=== PATIENT | female | born 1960 | race Caucasian/White ===

== ENCOUNTER → 2016-10-09 | Outpatient (CLI) | payer BC ==
--- NOTE | 2016-10-09 15:48 | REP ---
Soft-tissue ultrasound left groin. History: Tender groin lump question of lymph nodes. The patient states the symptoms come and go. Findings: Scanning through the left groin shows several normal lymph nodes. No soft tissue mass, adenopathy or cyst is seen. No evidence of hernia. The lymph nodes retain their hilar central fatty replaced architecture. Lymph nodes are seen measuring 1.3 x 0.6 x 0.2 cm, 2.5 x 0.7 x 0.5 cm, 0.9 x 0.4 x 0.3 cm, and 1.2 x 0.5 x 0.4 cm. Impression: Normal appearing lymph nodes. No other abnormality.
== END ==
LOC: M WHC 08:41
PROVIDERS: ATTEND Nurse Practitioner Family
DX: R19.09 Other intra-abdominal and pelvic swelling, mass and lump (principal)

== ENCOUNTER → 2017-02-04 | Outpatient (REF) | payer BC ==
[2017-02-04 14:42] LABS: TOTAL PROTEIN 7.2 GM/DL (6.4-8.2)
[2017-02-04 14:45] LABS: VITAMIN B12 LEVEL 662 PG/ML
[2017-02-04 14:46] LABS: FOLATE > 24.0 NG/ML
[2017-02-07 11:16] LABS: ALBUMIN 4.49 GM/DL (3.29-5.55); ALBUMIN % 62.4 % (55.8-66.1); GAMMA GLOBULIN % 10.9 % (11.1-18.8)
== END ==
LOC: M LABNEURO 13:56
PROVIDERS: ATTEND Psychiatry & Neurology Neurology
DX: N39.0 Urinary tract infection, site not specified (principal); E11.9 Type 2 diabetes mellitus without complications; G62.9 Polyneuropathy, unspecified

== ENCOUNTER → 2018-03-31 | Outpatient (REF) ==
[2018-03-31 14:30] LABS: HEPATITIS B SURFACE ANTIGEN NEGATIVE (NEGATIVE)
[2018-03-31 14:58] LABS: HEPATITIS C VIRUS ABY INDEX 0.3 INDEX (<0.8)
== END ==
LOC: M LAB REF 13:55
DX: N17.9 Acute kidney failure, unspecified (principal)

== ENCOUNTER → 2018-07-03 | Outpatient (REF) | payer BC ==
[2018-07-08 14:49] LABS: HPV HYBRID CAPTURE II Negative (Negative)
== END ==
LOC: M SFHCWAGY 08:05
DX: Z12.4 Encounter for screening for malignant neoplasm of cervix (principal)
CPT/HCPCS: G0123

== ENCOUNTER → 2018-07-03 | Outpatient (CLI) | payer BC | LOC: M WHC 08:10 | DX: Z12.31 Encounter for screening mammogram for malignant neoplasm of breast (principal); Z78.0 Asymptomatic menopausal state | CPT/HCPCS: 77067 ==

== ENCOUNTER → 2019-07-06 | Outpatient (CLI) | payer BC ==
--- NOTE | 2019-07-06 10:59 | REP ---
BILATERAL SCREENING DIGITAL MAMMOGRAM WITH 3D TOMOSYNTHESIS: There are no palpable abnormalities or other breast complaints. The the patient states she had a clinical breast examination July,. The the patient states she performs self-breast examinations 12 times per year. The Tyrer-Cuzick Score is: 8.9% . Comparison is 06/28/2014. There are scattered areas of fibroglandular density. There is no dominant mass, micro calcific cluster or architectural distortion that would indicate malignancy. There are no additional findings on 3D tomosynthesiss. There is no change from the prior study. Impression: BIRADS/ACR category 1 mammogram. Negative. Recommendation: Routine annual screening mammography. This mammogram was interpreted with the aid of a FDA approved computer-aided detection system. A. Negative mammogram reports should not delay biopsy if a dominant or clinically suspicious mass is present. B. Not all breast cancers are identified by mammography or tomosynthesis. C. Adenosis and dense breasts may obscure an underlying neoplasm. Patient letter M1. Electronically Signed by Deep Oates MD 07/06/2019 10:50 A
== END ==
LOC: M WHC 08:07
PROVIDERS: ATTEND Nurse Practitioner Family
DX: Z12.31 Encounter for screening mammogram for malignant neoplasm of breast (principal)

== ENCOUNTER → 2019-07-06 | Outpatient (REF) | payer BC | LOC: M SFHCWAGY 08:29 | PROVIDERS: ATTEND Nurse Practitioner Family | DX: Z12.4 Encounter for screening for malignant neoplasm of cervix (principal) ==

== ENCOUNTER → 2020-07-12 | Outpatient (REF) | payer BC | LOC: M SFHCWAGY 13:17 | PROVIDERS: ATTEND Nurse Practitioner Family | DX: Z12.4 Encounter for screening for malignant neoplasm of cervix (principal) ==

== ENCOUNTER → 2020-07-12 | Outpatient (CLI) | payer BC ==
--- NOTE | 2020-07-12 11:48 | REPMRS ---
Patient History The patient states she had a clinical breast exam in 2019. No known family history of cancer. No Hormone Replacement Therapy Digital Woman Screen Mammo: July 12, 2020 - Exam #: [id number] Bilateral CC and MLO view(s) were taken. Technologist: Raven Brewster, Technologist Prior study comparison: July 06, 2019, bilateral digital woman screen mammo performed at [facility]. July 03, 2018, bilateral digital woman screen mammo performed at [facility]. July 02, 2017, digital woman screen mammo performed at [facility]. FINDINGS: The breast tissue is almost entirely fat. The Volpara volumetric breast density category is: A. There has been no change in the appearance of the mammogram from the prior studies. There is no interval development of dominant mass, architectural distortion, or grouped microcalcification typical of malignancy. 3-D tomosynthesis shows no additional findings. Assessment: BI-RADS/ACR category 1 mammogram. Negative Mammogram. Recommendation Routine screening mammogram of both breasts in 1 year (for women over age 40). This patient's Lifetime Breast Cancer RIsk is estimated at 8.6 %. This mammogram was interpreted with the aid of an FDA-approved computer-aided dectection system. Electronically Signed By: Levar Delgado MD 07/12/20 2170
== END ==
LOC: M WHC 07:57
PROVIDERS: ATTEND Nurse Practitioner Family
DX: Z12.31 Encounter for screening mammogram for malignant neoplasm of breast (principal)

== ENCOUNTER → 2021-07-31 | Outpatient (REF) | payer BC | LOC: M SFHCWAGY 10:18 | PROVIDERS: ATTEND Nurse Practitioner Women's Health | DX: Z12.4 Encounter for screening for malignant neoplasm of cervix (principal); Z91.89 Other specified personal risk factors, not elsewhere classified ==

== ENCOUNTER → 2021-07-31 | Outpatient (CLI) | payer BC | LOC: M WHC 08:20 | PROVIDERS: ATTEND Nurse Practitioner Women's Health | DX: Z12.31 Encounter for screening mammogram for malignant neoplasm of breast (principal) ==

== ENCOUNTER → 2022-08-02 | Outpatient (CLI) | payer BC | LOC: M WHC 07:05 | PROVIDERS: ATTEND Nurse Practitioner Family | DX: Z12.31 Encounter for screening mammogram for malignant neoplasm of breast (principal) ==

== ENCOUNTER → 2023-08-04 | Outpatient (CLI) | payer BC ==
[~2023-08-04] MED LIST: ATEN25TA PO; GABA-284 PO; LEVO50TA5 PO; MM S100C PO; MULTTAB57 PO; NEUR600T PO; NIFE20CA PO; OMEP40CA4 PO; PAME25CA PO
== END ==
LOC: M WHC 07:11
PROVIDERS: ATTEND Nurse Practitioner Family
DX: Z12.31 Encounter for screening mammogram for malignant neoplasm of breast (principal)

== ENCOUNTER → 2024-08-10 | Outpatient (CLI) | payer BC ==
[~2024-08-10] MED LIST changes: +NIFE1CAP2 PO; -NIFE20CA PO
== END ==
LOC: M WHC 07:52
PROVIDERS: ATTEND Nurse Practitioner Family
DX: Z12.31 Encounter for screening mammogram for malignant neoplasm of breast (principal); R92.313 Mammographic fatty tissue density, bilateral breasts

== ENCOUNTER → 2025-08-17 | Outpatient (REF) | payer BC, MEDICARE ==
[2025-08-19 13:57] LABS: HPV APTIMA Not Detected (Not Detected)
== END ==
LOC: M SFHCWAGY 13:31
PROVIDERS: ATTEND Nurse Practitioner Family
DX: Z12.4 Encounter for screening for malignant neoplasm of cervix (principal)
CPT/HCPCS: 87624; G0123

== ENCOUNTER → 2025-08-17 | Outpatient (CLI) | payer BC, MEDICARE | LOC: M WHC 08:24 | PROVIDERS: ATTEND Nurse Practitioner Family | DX: Z12.31 Encounter for screening mammogram for malignant neoplasm of breast (principal); Z13.820 Encounter for screening for osteoporosis; R92.323 Mammographic fibroglandular density, bilateral breasts; Z78.0 Asymptomatic menopausal state ==